=== PATIENT | male | born 1960 | race Caucasian/White ===

== ENCOUNTER 2017-03-18 15:20 | Emergency (ER) | payer BC ==
[~2017-03-18] VITALS: Ht 167.6 cm; Wt 64.8 kg
[~2017-03-18 15:20] MED LIST: CITALOPRAM HBR20 MG PO; CLONIDINE HCL0.1 MG PO; LISINOPRIL10 MG PO; PERCOCET 5/31 TABLET PO
[2017-03-18] MEDS ORDERED: ZESTRIL20 MG PO (16:01)
[2017-03-18] MEDS ORDERED: CATAPRES0.1 MG PO (16:01)
[2017-03-18 16:29] VITALS: BP 145/122
== END 2017-03-18 16:43 | disposition home or self-care (01) ==
LOC: EME 15:20
DX: G56.30 Lesion of radial nerve, unspecified upper limb (principal); I10 Essential (primary) hypertension; F17.200 Nicotine dependence, unspecified, uncomplicated
CPT/HCPCS: 93005; 99281; 99285